=== PATIENT | female | born 1955 | race Caucasian/White ===

== ENCOUNTER 2021-02-12 14:13 | Observation (INO) | payer OTHER ==
[2021-02-12 14:21] LABS: Glucose,Whole Blood 126 mg/dL (75-99)
[2021-02-12] MEDS ORDERED: SODIUM CHLORIDE 0.9% 1,000 ML IV STA (14:29)
[2021-02-12] MEDS ORDERED: FAMOTIDINE 20 MG/2 ML VIAL IV STA (14:30)
[2021-02-12] MEDS ORDERED: fentaNYL (PF) 50 MCG/ML 2 ML AMP IVP PRN ×2 (14:32→18:00)
[2021-02-12 14:44] LABS: Basophils # (A) 0.1 k/uL (0-0.2); Basophils % (A) 1 %; Eosinophils # (A) 0.2 k/uL (0-0.7); Eosinophils % (A) 3 %; HCT 36.8 % (34.0-46.0); HGB 11.8 gm/dL (11.4-16.0); Lymphocytes # (A) 3.3 k/uL (1.0-4.8); Lymphocytes % (A) 48 %; MCHC 32.1 g/dL (31.0-37.0); Mean Platelet Volume 8.5; Monocytes # (A) 0.4 k/uL (0-1.0); Monocytes % (A) 6 %; Neutrophils # (A) 2.6 k/uL (1.3-7.7); Neutrophils % (A) 39 %; Platelet Count 335 k/uL (150-450); RBC 4.54 m/uL (3.80-5.40); RDW 13.6 % (11.5-15.5); WBC 6.8 k/uL (3.8-10.6)
[2021-02-12 14:52] LABS: Partial Thromboplastin Time 22.4 sec (22.0-30.0); Prothrombin Time 10.2 sec (9.0-12.0)
[2021-02-12 14:55] LABS: ALT 11 U/L (4-34); AST 19 U/L (14-36); African American GFR (CKD) >90 (>60 ml/min/1.73 sqM); Albumin 3.6 g/dL (3.5-5.0); Alkaline Phosphatase 82 U/L (38-126); Anion Gap 8 mmol/L; Blood Urea Nitrogen 14 mg/dL (7-17); Calcium 9.3 mg/dL (8.4-10.2); Carbon Dioxide 25 mmol/L (22-30); Chloride 103 mmol/L (98-107); Glucose 130 mg/dL (74-99); Magnesium 2.1 mg/dL (1.6-2.3); Non-African American GFR(CKD) 78 (>60 ml/min/1.73 sqM); Potassium 3.8 mmol/L (3.5-5.1); Sodium 136 mmol/L (137-145); Total Bilirubin 0.3 mg/dL (0.2-1.3); Total Protein 6.6 g/dL (6.3-8.2)
--- NOTE | 2021-02-12 15:04 | XR ---
EXAMINATION TYPE: XR chest 2V DATE OF EXAM: 02/12/2021 COMPARISON: NONE HISTORY: Syncope TECHNIQUE: 2 views FINDINGS: There is hiatal hernia. Heart is normal. Lungs are clear. Diaphragm is normal. There are ch est leads. Bony thorax is intact. IMPRESSION: No active cardiopulmonary disease. Normal heart.
--- NOTE | 2021-02-12 15:24 | ED ---
General Adult HPI - General Chief complaint: Syncope Stated complaint: Syncope Time Seen by Provider: 02/12/21 14:20 Source: patient, EMS, RN notes reviewed, old records reviewed Mode of arrival: EMS Limitations: no limitations - History of Present Illness Initial comments: Patient was evaluated when she was placed in a room. Patient is a 65-year-old fe male with past medical history remarkable for IBS, vasovagal syncope, type 2 diabetes, hypertension, hypothyroidism who presents to the emergency Department following a syncopal episode. Patient was at [facility] when she felt like she had to have a bowel movement. She had some lower crampy abdominal pain. This is typical for IBS. She went into the restroom and bear down, and had a small bowel movement. It is nonbloody. Patient got up and walked out into the main part of the restaurant/store, when she felt lightheaded. She states this has happened before, however she lowered herself to the ground and had a passing out episode. She denies any seizure activity and denies urinary or bowel incontinence or tongue injury. She lost consciousness momentarily and awoke. She states she had brief confusion afterwards but quickly realize she must passed out. She has had these episodes before, however never fully syncopized. She denied any chest pain, shortness of breath, fevers, chills, cough. Denies any urinary complaints, vaginal discharge or bleeding. States she still has so me crampy lower abdominal pain at this time which is stable from earlier. Denies any lightheadedness, weakness, numbness. She has no other acute complaints at this time. 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 EMS provided the patient with Zofran for nausea and route to the hospital. She is vaccinated for COVID-19. - Related Data Home Medications Medication Instructions Recorded Confirmed Enalapril Maleate 20 mg PO BID 02/12/21 02/12/21 Levothyroxine Sodium [Synthroid] 150 mcg PO DAILY 02/12/21 02/12/21 Omeprazole 40 mg PO DAILY 02/12/21 02/12/21 Sertraline HCl [Zoloft] 25 mg PO DAILY 02/12/21 02/12/21 buPROPion [Wellbutrin] 75 mg PO BID 02/12/21 02/12/21 hydroCHLOROthiazide [Hydrodiuril] 25 mg PO DAILY 02/12/21 02/12/21 Allergies Allergy/AdvReac Type Severity Reaction Status Date / Time latex Allergy Rash/Hives Verified 02/12/21 14:57 morphine Allergy Rapid Verified 02/12/21 14:57 Heart Rate Penicillins Allergy Rash/Hives Verified 02/12/21 14:57 Review of Systems ROS Statement: Those systems with pertinent positive or pertinent negative responses have been documented in the HPI. Review of Systems: CONST: Denies fever EYES: Denies blurry vision ENT: Denies nasal congestion C/V: Denies Chest pain RESP: Denies shortness of breath GI: Endorses lower crampy abdominal pain, typical for her IBS. : Denies dysuria SKIN: Denies rash. MSK: Denies joint pain. NEURO: Denies headache ROS Other: All systems not noted in ROS Statement are negative. Past Medical History Past Medical History: Diabetes Mellitus, GERD/Reflux, Hypertension Additional Past Medical History / Comment(s): hypothyroid, rectal seal, IBS, hiatal hernia History of Any Multi-Drug Resistant Organisms: None Reported Past Psychological History: Anxiety Smoking Status: Never smoker Past Alcohol Use History: None Reported Past Drug Use History: None Reported General Exam - General Exam Comments Initial Comments: General: Appears in no acute distress. HEAD: Normal with no signs of head trauma. EYES: Patient is a left eye. EOMI. Conjunctivae normal in the right eye. Pupils 3 mm in the right eye and reactive to light. ENT: Hearing grossly intact, normal oropharynx. RESPIRATORY: Clear breath sounds bilaterally. No wheezes, rales, or rhonchi. C/V: Regular rate and rhythm. S1 and S2 auscultated, no edema, peripheral pulses 2+ and intact throughout ABD: Abdomen is soft, nondistended. She is mildly tender to palpation in the bilateral lower quadrants. There is no guarding. No peritoneal signs. No rebound tenderness. No CVA tenderness to percussion. EXT: Normal range of motion, no obvious deformity SKIN: No rashes or lesions observed on exposed skin. NEURO: Alert and oriented x 4. Cranial nerves II-XII intact. No focal sensory o r strength deficits. Cerebellar function is intact as evident by normal finger to nose testing. NIH is 0. GCS is 15. Limitations: no limitations Course Vital Signs 02/12/21 14:14 Temperature 97.6 F Pulse Rate 77 Respiratory 18 Rate Blood Pressure 122/66 O2 Sat by Pulse 99 Oximetry Medical Decision Making - Medical Decision Making Patient is a 65-year-old female with past medical history remarkable for vasovagal syncope presents emergency Department complaining of an episode of vasovagal syncope. She no injuries afterwards. She is describing bilateral lower quadrant abdominal pain which is constant. She is a history of IBS and states this reminds her that pain. She has no injuries from the fall. Neuro exam is normal. However we will obtain a cardiac workup including troponin, basic labs, chest x-ray, EKG. We'll also obtain a CT abdomen and pelvis due to the abdominal pain to rule out intra-abdominal pathology such as AAA. Patient w as in agreement this plan. She'll be connected to continuous cardiac monitoring while she is here in the department. Vital signs are within normal limits and stable at this time. She'll be given fentanyl for pain as well as 20 mg of famotidine and 1 L fluid bolus. She already received Zofran. Patient's EKG showed normal sinus rhythm with no concern for ACS or acute ischemia.Patient's labs were remarkable for a negative troponin. Urinalysis was unremarkable. Covid is negative. The remainder of the labs are unremarkable. Patient's CT abdomen and pelvis revealed a normal appendix with no acute intra- abdominal process. There is a large hiatal hernia which is known. Patient's chest x-ray shows no acute cardiopulmonary process. On reevaluation, patient was feeling somewhat improved at this time. We did have her ambulate to the bathroom, however she had another episode of lighthea dedness at that time. Due to her persistent symptoms despite fluid hydration, I would like to admitted to the hospital over concern for vasovagal syncope. She was in agreement this plan. I will consult cardiology to evaluate the patient tomorrow. We will trend her troponins. Patient was in agreement this plan. I spoke with the admitting team under Dr. Han who accepted the patient. Theref ore patient was admitted in stable condition to observation telemetry. - Lab Data Result diagrams: 02/12/21 14:33 02/12/21 14:33 Lab Results 02/12/21 02/12/21 02/12/21 Range/Units 14:19 14:33 14:33 WBC 6.8 (3.8-10.6) k/uL RBC 4.54 (3.80-5.40) m/uL Hgb 11.8 (11.4-16.0) gm/dL Hct 36.8 (34.0-46.0) % MCV 81.0 (80.0-100.0) fL MCH 26.0 (25.0-35.0) pg MCHC 32.1 (31.0-37.0) g/dL RDW 13.6 (11.5-15.5) % Plt Count 335 (150-450) k/uL MPV 8.5 Neutrophils % 39 % Lymphocytes % 48 % Monocytes % 6 % Eosinophils % 3 % Basophils % 1 % Neutrophils # 2.6 (1.3-7.7) k/uL Lymphocytes # 3.3 (1.0-4.8) k/uL Monocytes # 0.4 (0-1.0) k/uL Eosinophils # 0.2 (0-0.7) k/uL Basophils # 0.1 (0-0.2) k/uL PT 10.2 (9.0-12.0) sec INR 1.0 (<1.2) APTT 22.4 (22.0-30.0) sec Sodium (137-145) mmol/L Potassium (3.5-5.1) mmol/L Chloride (98-107) mmol/L Carbon Dioxide (22-30) mmol/L Anion Gap mmol/L BUN (7-17) mg/dL Creatinine (0.52-1.04) mg/dL Est GFR (CKD-EPI)AfAm (>60 ml/min/1.73 sqM) Est GFR (CKD-EPI)NonAf (>60 ml/min/1.73 sqM) Glucose (74-99) mg/dL POC Glucose (mg/dL) 126 H (75-99) mg/dL POC Glu Tank Builder Helper ID Malinda Jones Calcium (8.4-10.2) mg/dL Magnesium (1.6-2.3) mg/dL Total Bilirubin (0.2-1.3) mg/dL AST (14-36) U/L ALT (4-34) U/L Alkaline Phosphatase (38-126) U/L Troponin I (0.000-0.034) ng/mL Total Protein (6.3-8.2) g/dL Albumin (3.5-5.0) g/dL Urine Color Urine Appearance (Clear) Urine pH (5.0-8.0) Ur Specific [place] (1.001-1.035) Urine Protein (Negative) Urine Glucose (UA) (Negative) Urine Ketones (Negative) Urine Blood (Negative) Urine Nitrite (Negative) Urine Bilirubin (Negative) Urine Urobilinogen (<2.0) mg/dL Ur Leukocyte Esterase (Negative) Urine RBC (0-5) /hpf Urine WBC (0-5) /hpf Ur Squamous Epith Cells (0-4) /hpf Hyaline Casts (0-2) /lpf Urine Mucus (None) /hpf 02/12/21 02/12/21 02/12/21 Range/Units 14:33 14:33 14:33 WBC (3.8-10.6) k/uL RBC (3.80-5.40) m/uL Hgb (11.4-16.0) gm/dL Hct (34.0-46.0) % MCV (80.0-100.0) fL MCH (25.0-35.0) pg MCHC (31.0-37.0) g/dL RDW (11.5-15.5) % Plt Count (150-450) k/uL MPV Neutrophils % % Lymphocytes % % Monocytes % % Eosinophils % % Basophils % % Neutrophils # (1.3-7.7) k/uL Lymphocytes # (1.0-4.8) k/uL Monocytes # (0-1.0) k/uL Eosinophils # (0-0.7) k/uL Basophils # (0-0.2) k/uL PT (9.0-12.0) sec INR (<1.2) APTT (22.0-30.0) sec Sodium 136 L (137-145) mmol/L Potassium 3.8 (3.5-5.1) mmol/L Chloride 103 (98-107) mmol/L Carbon Dioxide 25 (22-30) mmol/L Anion Gap 8 mmol/L BUN 14 (7-17) mg/dL Creatinine 0.81 (0.52-1.04) mg/dL Est GFR (CKD-EPI)AfAm >90 (>60 ml/min/1.73 sqM) Est GFR (CKD-EPI)NonAf 78 (>60 ml/min/1.73 sqM) Glucose 130 H (74-99) mg/dL POC Glucose (mg/dL) (75-99) mg/dL POC Glu Tank Builder Helper ID Calcium 9.3 (8.4-10.2) mg/dL Magnesium 2.1 (1.6-2.3) mg/dL Total Bilirubin 0.3 (0.2-1.3) mg/dL AST 19 (14-36) U/L ALT 11 (4-34) U/L Alkaline Phosphatase 82 (38-126) U/L Troponin I <0.012 (0.000-0.034) ng/mL Total Protein 6.6 (6.3-8.2) g/dL Albumin 3.6 (3.5-5.0) g/dL Urine Color Yellow Urine Appearance Clear (Clear) Urine pH 7.0 (5.0-8.0) Ur Specific [place] 1.011 (1.001-1.035) Urine Protein Trace H (Negative) Urine Glucose (UA) Negative (Negative) Urine Ketones Negative (Negative) Urine Blood Negative (Negative) Urine Nitrite Negative (Negative) Urine Bilirubin Negative (Negative) Urine Urobilinogen <2.0 (<2.0) mg/dL Ur Leukocyte Esterase Small H (Negative) Urine RBC <1 (0-5) /hpf Urine WBC 2 (0-5) /hpf Ur Squamous Epith Cells <1 (0-4) /hpf Hyaline Casts 4 H (0-2) /lpf Urine Mucus Rare H (None) /hpf - EKG Data -: EKG Interpreted by Me EKG Comments: 12-lead Electrocardiogram Interpretation Note EKG was reviewed and interpreted by myself. 12-lead ECG performed at 1419 is interpreted by me as revealing normal sinus rhythm at a rate of 76 beats per minute. [place] is normal. GA interval is 154 ms, QRS duration is 84 ms, QTc is 427 ms.. There were no ST or T wave abnormalities to suggest myocardial ischem ia or injury. R wave progression across the precordium was satisfactory. By my interpretation this EKG is non-diagnostic for acute ischemia. Disposition Clinical Impression: Vasovagal syncope, Presence of artificial left eye, Abdominal pain, Nausea Disposition: ADMITTED IP TO THIS HOSP Condition: Stable
[2021-02-12 15:27] LABS: Appearance,Urine Clear (Clear); Bilirubin,Urine Negative (Negative); Blood,Urine Negative (Negative); Color,Urine Yellow; Glucose,Urine (UA) Negative (Negative); Hyaline Casts,Urine 4 /lpf (0-2); Ketones,Urine Negative (Negative); Leukocyte Esterase,Urine Small (Negative); Mucus,Urine Rare /hpf; Nitrite,Urine Negative (Negative); Protein,Urine Trace (Negative); RBC,Urine <1 /hpf (0-5); Specific Gravity,Urine 1.011 (1.001-1.035); Squamous Epithelial Cell,Urine <1 /hpf (0-4); Urobilinogen,Urine <2.0 mg/dL (<2.0); WBC,Urine 2 /hpf (0-5)
--- NOTE | 2021-02-12 15:44 | CT ---
EXAMINATION TYPE: CT abdomen pelvis w con DATE OF EXAM: 02/12/2021 COMPARISON: None HISTORY: Pelvic pain with diarrhea. CT DLP: 1833 mGycm Automated exposure control for dose reduction was used. CONTRAST: Performed with IV Contrast, patient injected with 100 mL of Isovue 300. Lung bases are clear. There is no pleural effusion. There is large hiatal hernia. Liver spleen pancre as gallbladder appear intact. Bile ducts are nondilated. There is no adrenal mass. Kidneys show satisfactory contrast opacification. There is no hydronephrosi s. Appendix appears normal. Bladder distends smoothly. There is no retroperitoneal adenopathy. Ureter s are not dilated. There is no inguinal hernia. There is no evidence of a pelvic mass. There is no free fluid in the pelvis. There is no mesenteric e richard. There is no ascites or free air. There is no sign of a bowel obstruction. Delayed images show n ormal renal excretion. Lumbar vertebra have normal alignment. There is degenerative disc space narrowing at L5-S1 with spurr ing. Posterior elements are intact. Bony pelvis is intact. Hip joints appear intact. IMPRESSION: Normal appendix. No sign of acute abdomen and pelvis. Large hiatal hernia.
[2021-02-12] MEDS ORDERED: ONDANSETRON 4 MG/2 ML VIAL IVP PRN (16:28)
[2021-02-12] MEDS ORDERED: NALOXONE 0.4 MG/ML 1 ML VIAL IV PRN (16:28)
[2021-02-12] MEDS ORDERED: KETOROLAC 15 MG/ML 1 ML VIAL IVP PRN (16:28)
[2021-02-12] MEDS: SODIUM CHLORIDE 0.9% 1,000 ML IV SCH (16:40)
--- NOTE | 2021-02-12 19:00 | P.HPIM ---
History of Present Illness H&P Date: 02/12/21 65-year-old female with past medical history remarkable for IBS, vasovagal syncope, type 2 diabetes, hypertension, hypothyroidism who presents to the emergency Department following a syncopal episode. Patient was at [facility] when she felt like she had to have a bowel movement. She had some lower crampy abdominal pain. This is typical for IBS. She went into the restroom and bear down, and had a small bowel movement. It is nonbloody. Patient got up and walked out into the main part of the restaurant/store, when she felt lightheaded. She states this has happened before, however she lowered herself to the ground and had a passing out episode. She denies any seizure activity and denies urinary or bowel incontinence or tongue injury. She lost consciousness momentarily and awoke. She states she had brief confusion afterwards but quickly realize she must passed out. She has had these episodes before, however never fully syncopized. She denied any chest pain, shortness of breath, fevers, chills, cough. Denies any urinary complaints, vaginal discharge or bleeding. States she still has some crampy lower abdominal pain at this time which is stable from earlier. Denies any lightheadedness, weakness, numbness. She has no other acute complaints at this time. 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 EMS provided the patient with Zofran for nausea and route to the hospital. She is vaccinated for COVID-19. Initial work up cardiac workup including troponin, basic labs, chest x-ray, EKG negatiive. Patient's EKG showed normal sinus rhythm with no concern for ACS or acute ischemia.Patient's labs were remarkable for a negative troponin. Urinalysis was unremarkable. Covid is negative. The remainder of the labs are unremarkable. Patient's CT abdomen and pelvis revealed a normal appendix with no acute intra-abdominal process. There is a large hiatal hernia which is known. Patient's chest x-ray shows no acute cardiopulmonary process. Review of Systems Normal review of systems Past Medical History Past Medical History: Diabetes Mellitus, GERD/Reflux, Hypertension Additional Past Medical History / Comment(s): hypothyroid, rectal seal, IBS, h iatal hernia History of Any Multi-Drug Resistant Organisms: None Reported Past Psychological History: Anxiety Smoking Status: Never smoker Past Alcohol Use History: None Reported Past Drug Use History: None Reported Medications and Allergies Home Medications Medication Instructions Recorded Confirmed Type Enalapril Maleate 20 mg PO BID 02/12/21 02/12/21 History Levothyroxine Sodium [Synthroid] 150 mcg PO DAILY 02/12/21 02/12/21 History Omeprazole 40 mg PO DAILY 02/12/21 02/12/21 History Sertraline HCl [Zoloft] 25 mg PO DAILY 02/12/21 02/12/21 History buPROPion [Wellbutrin] 75 mg PO BID 02/12/21 02/12/21 History hydroCHLOROthiazide [Hydrodiuril] 25 mg PO DAILY 02/12/21 02/12/21 History Allergies Allergy/AdvReac Type Severity Reaction Status Date / Time latex Allergy Rash/Hives Verified 02/12/21 14:57 morphine Allergy Rapid Verified 02/12/21 14:57 Heart Rate Penicillins Allergy Rash/Hives Verified 02/12/21 14:57 Physical Exam Vitals: Vital Signs Temp Pulse Resp BP Pulse Ox 02/12/21 14:14 97.6 F 77 18 122/66 99 Intake and Output 02/12/21 02/12/21 02/12/21 06:59 14:59 22:59 Other: Weight 93.44 kg General: non toxic, no acute distress, alert oriented to time place and person Head: atraumatic, normocephalic, symmetric Eyes: no lid lesion], anicteric sclera Mouth: no lip lesion, mucus membranes moist Cardiovascular: S1S2 reg rate and rhythm, no murmur, no gallop Lungs: Bilateral equal air entry, no wheezing no rhonchi no crackles. Abdominal: soft, nontender to palpation, no guarding, no appreciable organomegaly Ext: no gross muscle atrophy, no edema extremities warm to suppose a positive Neuro: Alert oriented to time place and person, exam grossly nonfocal Psych: Mood and affect appropriate, patient not so certain Skin exam: No rashes no jaundice. Results CBC & Chem 7: 02/12/21 14:33 02/12/21 14:33 Labs: Abnormal Lab Results - Last 24 Hours (Table) 02/12/21 02/12/21 02/12/21 Range/Units 14:19 14:33 14:33 Sodium 136 L (137-145) mmol/L Glucose 130 H (74-99) mg/dL POC Glucose (mg/dL) 126 H (75-99) mg/dL Urine Protein Trace H (Negative) Ur Leukocyte Esterase Small H (Negative) Hyaline Casts 4 H (0-2) /lpf Urine Mucus Rare H (None) /hpf Assessment and Plan Assessment: Syncope likley vasovagal, cont cardiac telemetry Check echo Cardiology consult DM II ISS Check hemoglobin a1c HTN Stable, cont home meds HL Stable, cont home meds Hypothyroidsim Stable, cont home synthyroid IBS Stable DVT prophylaxis: Subcutaneous heparin CODE STATUS: Full code Discharge plan/next site of care: Pending workup hospital course, likely back to home
[2021-02-12] MEDS: lisinopriL 20 MG TAB PO SCH (21:27)
[2021-02-12] MEDS: buPROPion 75 MG TAB PO SCH (21:28)
[2021-02-13] MEDS: HEPARIN SODIUM,PORCINE/PF 5,000 UNIT/0.5 ML SYRINGE SQ SCH ×2 (03:22→08:28)
[2021-02-13 05:27] VITALS: RESP 18
[2021-02-13] MEDS ORDERED: LEVOTHYROXINE 75 MCG TAB PO SCH (06:30)
[2021-02-13] MEDS: lisinopriL 20 MG TAB PO SCH (08:28)
[2021-02-13] MEDS: SODIUM CHLORIDE 0.9% 1,000 ML IV SCH (08:32)
[2021-02-13] MEDS: buPROPion 75 MG TAB PO SCH (08:32)
[2021-02-13] MEDS ORDERED: hydroCHLOROthiazide 25 MG TAB PO SCH (09:00)
[2021-02-13] MEDS ORDERED: PANTOPRAZOLE 40 MG TABLET PO SCH (09:00)
[2021-02-13] MEDS ORDERED: SERTRALINE 25 MG TAB PO SCH (09:00)
[2021-02-13 09:30] LABS: Basophils # (A) 0.04 X 10*3/uL (0.00-0.10); Basophils % (A) 0.8 %; Eosinophils # (A) 0.12 X 10*3/uL (0.04-0.35); Eosinophils % (A) 2.3 %; HCT 34.9 % (37.2-46.3); HGB 10.8 g/dL (12.0-15.0); Lymphocytes # (A) 1.97 X 10*3/uL (0.90-5.00); MCH 25.9 pg (27.0-32.0); MCHC 30.9 g/dL (32.0-37.0); MCV 83.7 fL (80.0-97.0); Mean Platelet Volume 11.6 fL (9.5-12.2); Monocytes # (A) 0.47 X 10*3/uL (0.20-1.00); Monocytes % (A) 8.8 %; Neutrophils % (A) 50.7 %; Platelet Count 297 X 10*3/uL (140-440); RBC 4.17 X 10*6/uL (4.10-5.20); RDW 14.4 % (11.5-14.5); WBC 5.32 X 10*3/uL (4.50-10.00)
--- NOTE | 2021-02-13 10:59 | CONS ---
CONSULTATION CHIEF COMPLAINT: Syncope. Mackenzie Michelle is a 65-year-old lady with history of hypertension, depression, hypothyroidism, who presented to hospital having had an episode of syncope. Patient states that she has irritable bowel syndrome, was having dinner at a restaurant and developed abdominal pain and became vasovagal and passed out. She has had prior vasovagal episodes but does not think that she completely passed out as she did this time. It started with dizziness, shortness of breath. She became diaphoretic and had loss of consciousness. There was no bladder or bowel incontinence and at the time of my evaluation she appears comfortable at rest and is free of symptoms. EKG shows sinus rhythm, normal axis, normal intervals. Her labs show that three sets of troponins are negative. PAST MEDICAL HISTORY: Significant for depression, hypertension, irritable bowel syndrome and GERD. MEDICATIONS: Medications at home included HydroDIURIL mg daily, Wellbutrin, Zoloft, omeprazole, Zestril, Narcan, Zofran, Protonix. ALLERGIES: LATEX, MORPHINE AND PENICILLIN. FAMILY HISTORY: Negative for premature coronary artery disease. SOCIAL HISTORY: Negative for current smoking, EtOH abuse or drug abuse. REVIEW OF SYSTEMS: HEENT is unremarkable. CARDIAC: As described above. RESPIRATORY: Negative. GI: Negative. GENITOURINARY: Negative. ALLERGY/IMMUNOLOGY: Negative. SKIN: Negative. MUSCULOSKELETAL: Significant for arthritis. PSYCHOSOCIAL: Negative. ENDOCRINE: Negative. DERMATOLOGY: Negative. CONSTITUTIONAL: Negative. ONCOLOGICAL: Negative. JAZZ SINGER: Negative. Rest of the system review is not relevant. PHYSICAL EXAMINATION: Patient is comfortable at rest. Vital signs are stable. There is no jugular venous distention. Carotid upstroke is normal. There is no bruit. Chest exam reveals good air entry bilaterally. Heart exam reveals first and second heart sounds. No gallop. No murmur. Abdomen is soft, nontender. Examination of extremities did not reveal any edema. Peripheral pulses are felt. LABS: Hemoglobin 11.8. Platelet count is 335. Potassium is 3.8. Creatinine is 0.8. Three sets of troponins are negative. ASSESSMENT: Syncope, probably vasovagal in origin. PLAN: I am going to obtain a 2D echo and if this is negative, she can be discharged home and arrange for an outpatient stress test and Holter. MMODL / IJN: [id number] /
--- NOTE | 2021-02-13 11:03 | ECHOF ---
Referral Reason:Vasovagal syncope MEASUREMENTS -------- HEIGHT: 157.5 cm WEIGHT: 93.4 kg BP: 113/67 RVIDd: 2.8 cm (< 3.3) IVSd: 1.2 cm (0.6 - 1.1) LVIDd: 3.6 cm (3.9 - 5.3) LVPWd: 1.0 cm (0.6 - 1.1) IVSs: 1.6 cm LVIDs: 2.5 cm LVPWs: 1.5 cm LA Diam: 3.5 cm (2.7 - 3.8) LAESV Index (A-L): 30.18 ml/m Ao Diam: 2.4 cm (2.0 - 3.7) AV Cusp: 1.8 cm (1.5 - 2.6) MV EXCURSION: 14.946 mm (> 18.000) MV EF SLOPE: 88 mm/s (70 - 150) EPSS: 0.5 cm MV E Mil: 1.01 m/s MV DecT: 249 ms MV A Mil: 0.93 m/s MV E/A Ratio: 1.09 RAP: 5.00 mmHg RVSP: 34.73 mmHg FINDINGS -------- Sinus rhythm. This was a technically adequate study. The left ventricular size is normal. There is borderline concentric left ventricular hypertrophy. Overall left ventricular systolic function is normal with, an EF between 60 - 65 %. The right ventricle is normal in size. LA is midly dilated 29-33ml/m2. The right atrium is normal in size. Trace amount of aortic regurgitation. The mitral valve is normal. Mild tricuspid regurgitation present. There is mild pulmonary hypertension. The right ventricular systolic pressure, as measured by Doppler, is 34.73mmHg. Trace/mild (physiologic) pulmonic regurgitation. The aortic root size is normal. Normal inferior vena cava with normal inspiratory collapse consistent with estimated right atrial pre ssure of 5 mmHg. There is no pericardial effusion. CONCLUSIONS -------- 1. The left ventricular size is normal. 2. There is borderline concentric left ventricular hypertrophy. 3. Overall left ventricular systolic function is normal with, an EF between 60 - 65 %. 4. LA is midly dilated 29-33ml/m2. 5. Trace amount of aortic regurgitation. 6. Mild tricuspid regurgitation present. 7. There is mild pulmonary hypertension. 8. The right ventricular systolic pressure, as measured by Doppler, is 34.73mmHg. 9. Trace/mild (physiologic) pulmonic regurgitation. 10. There is no pericardial effusion. IT PROGRAM AUDITOR: Makenzie Sr RDCS
[2021-02-13 12:05] VITALS: PULSE 77
[2021-02-13 12:33] VITALS: BP 105/54; TEMP 97.7
--- NOTE | 2021-02-13 14:14 | P.DS ---
Providers Date of admission: 02/12/21 16:29 Expected date of discharge: 02/13/21 Attending physician: Ivan Han MD Consults: 02/12/21 16:29 Consult Physician Routine Consulting Provider: [facility] Consult Reason/Comments: syncope, likely vasovagal Do you want consulting provider notified?: Yes Primary care physician: Hazel Soni MD Hospital Course: This is a 65-year-old female with past medical history significant for hypertension, depression, and IBS that presented to the emergency room with a presyncopal episode. Patient stated that she was at the restaurant and then started having abdominal pain and subsequently had a bowel movement followed by a vasovagal episode. Patient was evaluated in the ER and 12-lead EKG showed normal sinus rhythm. Patient was placed on observation without evidence of events on telemetry monitoring. She was seen and evaluated by cardiology. Echocardiogram showed preserved ejection fraction with no significant valvular abnormalities. Patient was cleared for discharge home. She will follow up as directed. I would discontinue her home dose of hydrochlorothiazide to avoid dehydration and as her blood pressure is borderline low. General: The patient is awake and alert, in no distress Eye: there is normal conjunctiva bilaterally. Neck: The neck is supple, there is no JVD. Cardiovascular: Normal S1-S2, no S3-S4, no murmurs. Respiratory: Lungs clear to auscultation bilaterally Gastrointestinal: Abdomen is soft, nontender Musculoskeletal: There is no pedal edema. Neurological:. Speech is normal. Skin: Skin is warm and dry Patient Condition at Discharge: Stable Plan - Discharge Summary New Discharge Prescriptions: Continue Sertraline HCl [Zoloft] 25 mg PO DAILY Omeprazole 40 mg PO DAILY Levothyroxine Sodium [Synthroid] 150 mcg PO DAILY buPROPion [Wellbutrin] 75 mg PO BID Enalapril Maleate 20 mg PO BID Discontinued hydroCHLOROthiazide [Hydrodiuril] 25 mg PO DAILY Discharge Medication List Enalapril Maleate 20 mg PO BID 02/12/21 [History] Levothyroxine Sodium [Synthroid] 150 mcg PO DAILY 02/12/21 [History] Omeprazole 40 mg PO DAILY 02/12/21 [History] Sertraline HCl [Zoloft] 25 mg PO DAILY 02/12/21 [History] buPROPion [Wellbutrin] 75 mg PO BID 02/12/21 [History] Follow up Appointment(s)/Referral(s): Hazel Soni MD [Primary Care Provider] - 1-2 days Discharge Disposition: HOME SELF-CARE
[2021-02-13 15:25] LABS: ALT 8 U/L (8-44); AST 15 U/L (13-35); African American GFR (CKD) 96.6 (60.0-200.0); Albumin 3.6 g/dL (3.8-4.9); Albumin/Globulin Ratio 1.62 (1.60-3.17); Alkaline Phosphatase 74 U/L (41-126); BUN/Creat Ratio 12.79 Ratio (12.00-20.00); Blood Urea Nitrogen 9.7 mg/dL (9.0-27.0); Calcium 8.9 mg/dL (8.7-10.3); Chloride 106 mmol/L (96-109); Globulin 2.2 g/dL (1.6-3.3); Glucose 113 mg/dL (70-110); Non-African American GFR(CKD) 83.4 (60.0-200.0); Potassium 4.4 mmol/L (3.5-5.5); Sodium 141 mmol/L (135-145); Total Bilirubin <0.20 mg/dL (0.30-1.20); Total Protein 5.8 g/dL (6.2-8.2)
== END 2021-02-13 14:32 | disposition home or self-care (01) ==
LOC: EC 14:13 → 6NMEDSUR 16:29
PROVIDERS: ADMIT Student in an Organized Health Care Education/Training Program; ATTEND Student in an Organized Health Care Education/Training Program
DX: R55 Syncope and collapse (principal); K58.9 Irritable bowel syndrome, unspecified; K44.9 Diaphragmatic hernia without obstruction or gangrene; R06.02 Shortness of breath; R42 Dizziness and giddiness; R61 Generalized hyperhidrosis; E03.9 Hypothyroidism, unspecified; E11.9 Type 2 diabetes mellitus without complications; I10 Essential (primary) hypertension; K21.9 Gastro-esophageal reflux disease without esophagitis; R11.0 Nausea; F41.9 Anxiety disorder, unspecified; N81.6 Rectocele; M19.90 Unspecified osteoarthritis, unspecified site; Z20.822 Contact with and (suspected) exposure to COVID-19; Z79.890 Hormone replacement therapy; Z79.899 Other long term (current) drug therapy; Z88.0 Allergy status to penicillin; Z88.5 Allergy status to narcotic agent; Z91.040 Latex allergy status; Z97.0 Presence of artificial eye
CPT/HCPCS: 96361 ×2; 96372; 96374; 96375 ×2; 99285; 36415; 93005; 93306; 80053 ×2; 83735; 84484; 85025 ×2; 85610; 85730; 81001; 87635; 71046; 74177; G0378 ×2; J3010; J1885; Q9967; J1644